=== PATIENT | male | born 1975 | race Caucasian/White ===

== ENCOUNTER 2021-06-25 16:54 | Emergency (ER) | payer OTHER ==
[~2021-06-25] VITALS: Ht 167.6 cm; Wt 113.4 kg
[2021-06-25 17:41] LABS: ABSOLUTE NEUTROPHILS 7.8 thou/uL (1.4-8.2); BASOPHILS 0.9 % (0.0-2.0); EOSINOPHILS 5.1 % (0.0-3.0); HEMATOCRIT 43.4 % (42.0-52.0); HEMOGLOBIN 14.8 gm/dL (14.0-18.0); LYMPHOCYTES 21.9 % (24.0-44.0); MCH 30.3 pg (26.0-34.0); MCHC 34.1 g/dL (28.0-37.0); MCV 88.8 fL (80.0-100.0); MONOCYTES 6.5 % (1.0-8.0); PLATELET COUNT 229 thou/uL (150-400); POLYS 65.6 % (36.0-66.0); RBC 4.89 mil/uL (4.50-6.00); RDW 13.9 % (10.5-14.5); WBC 11.9 thou/uL (4.0-11.0)
[2021-06-25 17:50] LABS: CREATININE 1.9 mg/dL (0.7-1.3)
[2021-06-25 17:56] LABS: ALBUMIN 4.1 g/dL (3.4-5.0); TOTAL BILIRUBIN 0.9 mg/dL (0.2-1.0); TOTAL PROTEIN 8.2 g/dL (6.4-8.2)
[2021-06-25 18:17] LABS: MAGNESIUM 1.4 mg/dL (1.8-2.4); TROPONIN-I <0.06 ng/mL (<0.06)
[2021-06-25 19:58] VITALS: BP 138/79
--- NOTE | 2021-06-26 07:15 | EKG ---
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
== END 2021-06-25 20:00 | disposition home or self-care (01) ==
LOC: ER 16:54
PROVIDERS: Physician Assistant
DX: N17.9 Acute kidney failure, unspecified (principal); E86.0 Dehydration; Z77.123 Contact with and (suspected) exposure to radon and other naturally occurring radiation; Z20.822 Contact with and (suspected) exposure to COVID-19

== ENCOUNTER 2021-07-04 11:39 | Emergency (ER) | payer OTHER ==
[~2021-07-04] VITALS: Ht 170.2 cm; Wt 115.7 kg
[2021-07-04 11:49] VITALS: BP 154/73
[2021-07-04] MEDS ORDERED: FLEXERIL PO (12:05)
[2021-07-04] MEDS ORDERED: IBUPROFEN 800800 M1 PO (12:05)
== END 2021-07-04 12:51 | disposition home or self-care (01) ==
LOC: ER 11:39
DX: M54.5 Low back pain (principal); Z90.49 Acquired absence of other specified parts of digestive tract; Z87.891 Personal history of nicotine dependence

== ENCOUNTER → 2021-07-11 | Emergency (ER) | payer OTHER ==
[~2021-07-11] VITALS: Ht 170.2 cm; Wt 117.5 kg
[~2021-07-11] MED LIST: FLEXERIL PO; IBUPROFEN 800800 M1 PO
[2021-07-11 18:45] VITALS: BP 132/90
== END ==
LOC: ER 18:11
DX: R51.9 Headache, unspecified (principal); Z20.822 Contact with and (suspected) exposure to COVID-19; Z53.21 Procedure and treatment not carried out due to patient leaving prior to being seen by health care provider; R05 Cough; R53.83 Other fatigue; Z90.89 Acquired absence of other organs

== ENCOUNTER 2021-08-19 00:40 | Emergency (ER) | payer OTHER ==
[2021-08-19 00:48] VITALS: BP 144/80
--- NOTE | 2021-08-19 06:14 | NUR ---
PATIENT CONTACTED AT ([phone]) TO INFORM HIM OF POSITIVE COVID RESULTS. INFORMED PATIENT NOTIFIED THAT HE SHOULD CONTACT ANYONE HE HAS BEEN AROUND FOR THE LAST 3-5 DAYS TO LET THEM KNOW OF THE EXPOSURE. PATIENT INFORMED THAT HE SHOULD QUARANTINE FOR THE NEXT 10-14 DAYS AND CANNOT RETURN TO WORK UNTIL HE IS 10 DAYS OUT FROM POSITIVE RESULTS AND SYMPTOM FREE. PATIENT STATES UNDERSTANDING. PATIENT ASKED IF HE SHOULD COME BACK TO GET A NEGATIVE RESULT. INFORMATION PROVIDED THAT HE WOULD NOT TEST NEGATIVE FOR UP TO 90 DAYS, SO A NEGATIVE TEST RESULT IS NOT NECESSARY. INFORMATION TO FOLLOW CDC RECOMMENDATIONS AND QUARANTINE DISCUSSED PRIOR.
== END 2021-08-19 01:59 | disposition home or self-care (01) ==
LOC: ER 00:40
PROVIDERS: Emergency Medicine
DX: U07.1 COVID-19 (principal); J45.909 Unspecified asthma, uncomplicated; Z90.49 Acquired absence of other specified parts of digestive tract; Z87.891 Personal history of nicotine dependence

== ENCOUNTER 2021-08-29 15:45 | Inpatient (IN) | payer OTHER ==
[~2021-08-29] VITALS: Ht 170.2 cm; Wt 111.6 kg
[2021-08-29 15:51] VITALS: BP 117/73
[2021-08-29 16:44] LABS: ABSOLUTE NEUTROPHILS 4.2 thou/uL (1.4-8.2); BASOPHILS 0.3 % (0.0-2.0); EOSINOPHILS 0.6 % (0.0-3.0); HEMOGLOBIN 13.7 gm/dL (14.0-18.0); LYMPHOCYTES 12.8 % (24.0-44.0); MCH 29.3 pg (26.0-34.0); MCHC 33.5 g/dL (28.0-37.0); MCV 87.6 fL (80.0-100.0); MONOCYTES 5.3 % (1.0-8.0); PLATELET COUNT 117 thou/uL (150-400); RBC 4.68 mil/uL (4.50-6.00); WBC 5.2 thou/uL (4.0-11.0)
[2021-08-29 16:55] LABS: CALCIUM 7.6 mg/dL (8.5-10.1); CREATININE 2.6 mg/dL (0.7-1.3); POTASSIUM 3.6 mmol/L (3.5-5.1)
[2021-08-29 17:05] LABS: ALBUMIN 3.1 g/dL (3.4-5.0); TOTAL BILIRUBIN 0.4 mg/dL (0.2-1.0)
[2021-08-30] VITALS (7 sets, daily range): BP systolic 102–137; BP diastolic 45–82
[2021-08-30 02:22] LABS: HEMATOCRIT 43.7 % (42.0-52.0); HEMOGLOBIN 14.4 gm/dL (14.0-18.0); MCH 29.6 pg (26.0-34.0); MCV 89.7 fL (80.0-100.0); RBC 4.87 mil/uL (4.50-6.00); RDW 13.7 % (10.5-14.5); WBC 5.7 thou/uL (4.0-11.0)
[2021-08-30 02:37] LABS: CALCIUM 7.5 mg/dL (8.5-10.1); CREATININE 2.3 mg/dL (0.7-1.3); POTASSIUM 4.2 mmol/L (3.5-5.1)
--- NOTE | 2021-08-30 08:08 | EKG ---
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
--- NOTE | 2021-08-30 14:35 | NUR ---
ADMISSION NOTE: PT ADMITTED TO ROOM 354. ALERT AND ORIENTED X 4. PAIN IN R SIDE OF LOWER BACK STATES ITS TOLERABLE BUT WILL LET US KNOW IF HE NEEDS PAIN MANAGEMENT. CAME FROM ED ON 3L NC BUT HAD TO INCREASE TO 10L. PT IS CURRENTLY ON OPTIFLOW DUE TO SHORT OF AIR. DR. XIONG MADE AWARE. 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 ASSESSMENT AND ADMISSION COMPLETED. CONSENTS SIGNED BY PT AND IN CHART. SKIN INTACT. USES URINAL. WILL USE BSC NEEDED. PT ORIENTED TO ROOM. CALL LIGHT AND TABLE WITHIN REACH. CALLED WHILE IN THE ROOM, UPDATED ABOUT CARE. ENHANCED PRECAUTIONS IN PLACE. ALL CONSULTS CALLED IN BY TEAM ASSEMBLY LINE MACHINE OPERATOR. PT DENIES ANY NEEDS AT THE MOMENT. WILL CONTINUE TO MONITOR.
[2021-08-30 19:26] LABS: D-DIMER 0.66 ug/mLFEU (0.19-0.50); INR 0.99; PROTIME 10.8 Seconds (10.5-12.1)
[2021-08-31 03:52] VITALS: BP 126/68
[2021-08-31 04:22] LABS: ALBUMIN 2.5 g/dL (3.4-5.0); ANION GAP 10 mmol/L (7-16); BUN 33 mg/dL (7-18); CALCIUM 7.6 mg/dL (8.5-10.1); CHLORIDE 110 mmol/L (98-107); CO2 26 mmol/L (21-32); CREATININE 2.1 mg/dL (0.7-1.3); DIRECT BILIRUBIN < 0.1 mg/dL (<0.1-0.2); GLUCOSE 161 mg/dL (74-106); PHOSPHORUS 2.9 mg/dL (2.6-4.7); POTASSIUM 4.3 mmol/L (3.5-5.1); SGOT 51 U/L (15-37); SGPT 52 U/L (16-63); SODIUM 146 mmol/L (136-145); TOTAL BILIRUBIN 0.2 mg/dL (0.2-1.0); TOTAL PROTEIN 6.6 g/dL (6.4-8.2)
[2021-08-31 04:27] LABS: ABSOLUTE NEUTROPHILS 5.5 thou/uL (1.4-8.2); BASOPHILS 0.1 % (0.0-2.0); EOSINOPHILS 0.1 % (0.0-3.0); HEMATOCRIT 41.4 % (42.0-52.0); HEMOGLOBIN 13.8 gm/dL (14.0-18.0); LYMPHOCYTES 9.4 % (24.0-44.0); MCH 29.8 pg (26.0-34.0); MCHC 33.4 g/dL (28.0-37.0); MCV 89.3 fL (80.0-100.0); MONOCYTES 7.5 % (1.0-8.0); PLATELET COUNT 145 thou/uL (150-400); POLYS 82.9 % (36.0-66.0); RBC 4.64 mil/uL (4.50-6.00); RDW 14.1 % (10.5-14.5); WBC 6.6 thou/uL (4.0-11.0)
--- NOTE | 2021-08-31 06:24 | NUR ---
02 SATURATION STAYS IN 90'S UNTIL MOVEMENT, THEN SATS DROP TO LOW TO MID 80'S. RT MOVED OPTIFLOW RATE UP TO 40L @ 60%. PT VOIDS VIA URINAL. POC WITH IVF GTT AND IVPB ANTIBIOTICS. COVID POC WITH REMDESIVIR AND ACTEMRA. ACTEMRA PREDOSING COMPLETED. VSS.
[2021-08-31 07:24] VITALS: BP 126/70
[2021-08-31 11:12] VITALS: BP 123/85
[2021-08-31 15:28] VITALS: BP 125/74
[2021-08-31 20:39] VITALS: BP 128/73
--- NOTE | 2021-08-31 23:13 | NUR ---
PT ALERT AND ORIENTED X4. VSS AFEBRILE. SATS 87-88% AFTER GETTING BACK FROM COMMODE TO BED. SATS 94-96% WHILE RESTING IN BED. DENIED PAIN. ABX INFUSING ORDERED. BED DOWN BED ALARM IS ON. INSTRUCTED TO CALL FOR ASSISTANCE PRIOR TO GETTING OOB.
[2021-09-01 03:48] VITALS: BP 129/76
[2021-09-01 04:33] LABS: BASOPHILS 0.2 % (0.0-2.0); HEMATOCRIT 40.4 % (42.0-52.0); HEMOGLOBIN 13.6 gm/dL (14.0-18.0); LYMPHOCYTES 6.4 % (24.0-44.0); MCH 29.9 pg (26.0-34.0); MCHC 33.8 g/dL (28.0-37.0); MCV 88.5 fL (80.0-100.0); MONOCYTES 6.5 % (1.0-8.0); PLATELET COUNT 194 thou/uL (150-400); POLYS 86.9 % (36.0-66.0); RBC 4.56 mil/uL (4.50-6.00); RDW 14.7 % (10.5-14.5); WBC 10.3 thou/uL (4.0-11.0)
[2021-09-01 04:51] LABS: ALBUMIN 2.8 g/dL (3.4-5.0); CALCIUM 7.8 mg/dL (8.5-10.1); CREATININE 2.1 mg/dL (0.7-1.3); DIRECT BILIRUBIN 0.1 mg/dL (<0.1-0.2); PHOSPHORUS 3.9 mg/dL (2.5-4.9); POTASSIUM 4.3 mmol/L (3.5-5.1); TOTAL BILIRUBIN 0.3 mg/dL (0.2-1.0); TOTAL PROTEIN 6.2 g/dL (6.4-8.2)
--- NOTE | 2021-09-01 06:53 | NUR ---
PT PROGRESSING TOWARDS D/C GOALS VSS. SATS WNL 94%. DESATS WITH TRANSFERRING THEN GOES BACK UP. TO 90S. PT IN GOOD SPIRITS THIS AM AND STATED HE FEELS LIKE HE IS DOING BETTER.
[2021-09-01 07:26] VITALS: BP 158/75
[2021-09-01 11:10] VITALS: BP 119/79
[2021-09-01 15:25] VITALS: BP 120/74
[2021-09-01 19:18] VITALS: BP 130/80
--- NOTE | 2021-09-01 22:36 | NUR ---
PT AWAKE TALKING ON PHONE RESTING IN BED. OPTI YOLANDA INTACT. LUNGS WHEEZES. BS HYPOACTIVE. PT INCREASE SOA WITH EXERTION AND TALKING. PT DECLINED HS SNACK.
[2021-09-02 02:05] LABS: HIV ANTIBODY Non Reactive (Non Reactive)
[2021-09-02 03:44] LABS: ABSOLUTE NEUTROPHILS 7.9 thou/uL (1.4-8.2); BASOPHILS 0.1 % (0.0-2.0); HEMATOCRIT 40.7 % (42.0-52.0); HEMOGLOBIN 13.5 gm/dL (14.0-18.0); LYMPHOCYTES 8.3 % (24.0-44.0); MCH 29.4 pg (26.0-34.0); MCHC 33.1 g/dL (28.0-37.0); MCV 88.6 fL (80.0-100.0); MONOCYTES 7.9 % (1.0-8.0); PLATELET COUNT 220 thou/uL (150-400); POLYS 83.7 % (36.0-66.0); RBC 4.59 mil/uL (4.50-6.00); RDW 13.9 % (10.5-14.5); WBC 9.4 thou/uL (4.0-11.0)
[2021-09-02 04:05] LABS: ALBUMIN 2.9 g/dL (3.4-5.0); CALCIUM 8.3 mg/dL (8.5-10.1); DIRECT BILIRUBIN 0.1 mg/dL (<0.1-0.2); POTASSIUM 4.1 mmol/L (3.5-5.1); TOTAL BILIRUBIN 0.4 mg/dL (0.2-1.0); TOTAL PROTEIN 6.2 g/dL (6.4-8.2)
[2021-09-02 04:42] VITALS: BP 138/87
[2021-09-02 07:17] VITALS: BP 115/78
[2021-09-02 11:49] VITALS: BP 125/90
[2021-09-02 15:35] VITALS: BP 139/82
--- NOTE | 2021-09-02 15:55 | NUR ---
INITIAL ASSESSMENT: Received consult. SW reviewed chart and spoke with nursing and attending physician. Pt was admitted from home due to COVID. Pt placed in Enhanced Isolation. Pt has not received a COVID vaccination. Pt is afebrile and requiring optiflow. Pt is on IV abx, IV steroids, IV lasix and Remdesivir. GUSTAVO spoke with pt via phone. Introduced role of SW. Pt is alert/orientated x 4. Pt reports he lives at home with his and family. Prior to admission, pt was independent with ADLs. No use of DME. No hx of services or post acute placmeent. Pt does not have a PCP. Pt is interested in establishing primary care at [facility]. Therapy evals to be ordered when pt is able to participate. Plan is for pt to discharge home when medically stable. GUSTAVO is following to assist as needed with discharge planning.
--- NOTE | 2021-09-02 18:19 | NUR ---
RN ASSUMED PT'S CARE AT 0700AM, PT IS A&OX4, PT IS ON HIFLOW O2 ( OPTIFLOW ) O2 50L/MIN WITH O2 60%, PT'S O2 SAT STAYS AT 90-93%, PT HAS SOB WITH ACTIVITIES, PT'S VS ARE STABLE, PT DENIES PAIN AT DAY SHIFT, PT IS CONTINUING IV ABX AND TREAT COVID MEDICATIONS, PT CAN GET UP TO BATH ROOM WITHOUT ASSIST.
[2021-09-02 19:28] VITALS: BP 11/71
--- NOTE | 2021-09-02 22:07 | NUR ---
PT SITTIN UP ON EDGE OF BED, HOLDS HEAD DOWN. PT STATED HE WAS TOLD TODAY HE MAY NEED TO BE HERE ANOTHER WEEK, REPORTED HE IS ANXIOUS AND XANAX WAS NOW ORDERED. PT PROVIDED HS SNACK. OPTI YOLANDA INTACT, LUNGS DIMINISHED IN THE BASES. PT INDEP WITH BSC. IVF INTACT.
[2021-09-03 04:48] LABS: ABSOLUTE NEUTROPHILS 7.1 thou/uL (1.4-8.2); BASOPHILS 0.2 % (0.0-2.0); EOSINOPHILS 0.1 % (0.0-3.0); HEMATOCRIT 41.1 % (42.0-52.0); HEMOGLOBIN 13.6 gm/dL (14.0-18.0); LYMPHOCYTES 11.2 % (24.0-44.0); MCH 29.7 pg (26.0-34.0); MCHC 33.2 g/dL (28.0-37.0); MCV 89.4 fL (80.0-100.0); MONOCYTES 8.5 % (1.0-8.0); PLATELET COUNT 225 thou/uL (150-400); RBC 4.59 mil/uL (4.50-6.00); RDW 14.1 % (10.5-14.5); WBC 8.9 thou/uL (4.0-11.0)
[2021-09-03 05:22] LABS: CALCIUM 8.6 mg/dL (8.5-10.1); CREATININE 1.8 mg/dL (0.7-1.3); DIRECT BILIRUBIN 0.2 mg/dL (<0.1-0.2); PHOSPHORUS 5.2 mg/dL (2.5-4.9); POTASSIUM 4.1 mmol/L (3.5-5.1); TOTAL BILIRUBIN 0.5 mg/dL (0.2-1.0); TOTAL PROTEIN 6.4 g/dL (6.4-8.2)
[2021-09-03 05:36] VITALS: BP 108/71
[2021-09-03 08:19] VITALS: BP 112/66
[2021-09-03 11:47] VITALS: BP 109/66
[2021-09-03 15:23] VITALS: BP 119/54
--- NOTE | 2021-09-03 15:47 | NUR ---
SW reviewed chart and spoke with nursing and attending physician. Pt remains in Enhanced Isolation due to COVID. Pt is afebrile and requiring optiflow. Pt is on IV abx, IV steroids and IV lasix. Pt is completing course of Remdesivir. Plan is for pt to discharge home when medically stable. SW is following to assist as needed with discharge planning.
--- NOTE | 2021-09-03 18:29 | NUR ---
PT CONTINUE TO BE ON OPTIOFLOW 70%, 50L. SOB WITH EXERTION. PT ENCOURAGE TO DEEP COUGH AND DEEP BREATH. USES URINAL AND BSC. LUNGS ARE COARSE AND CRACKLY. ON LASIX AND 1500 FLUID RESTRICTED. CONTINUE TO BE IN ENHANCED PRECAUTIONS. WILL CONTINUE TO MONITOR
[2021-09-03 19:55] VITALS: BP 110/70
[2021-09-04 03:45] VITALS: BP 116/81
--- NOTE | 2021-09-04 06:26 | NUR ---
resting quietly tonight. he is cooperative. o2 sats low 90's. continues on the same dose of oxygen tonight as he started shift. no discharge concerns voice.d
[2021-09-04 06:30] LABS: CALCIUM 8.9 mg/dL (8.5-10.1); CREATININE 1.8 mg/dL (0.7-1.3); DIRECT BILIRUBIN 0.2 mg/dL (<0.1-0.2); PHOSPHORUS 4.9 mg/dL (2.5-4.9); POTASSIUM 4.2 mmol/L (3.5-5.1); TOTAL BILIRUBIN 0.6 mg/dL (0.2-1.0)
[2021-09-04 08:23] VITALS: BP 96/67
[2021-09-04 11:52] VITALS: BP 110/64
[2021-09-04 15:37] VITALS: BP 122/71
--- NOTE | 2021-09-04 18:29 | NUR ---
pt continue to be on optiflow, fio2 70%. sob with exertion. pt encouge to prone and deep and cough. had a bm todya. called [facility]. denies any concerns em
[2021-09-04 19:22] VITALS: BP 113/74
--- NOTE | 2021-09-04 22:47 | NUR ---
PT SLEEPING ON HIS STOMACH, PT PLEASED WITH HIGH O2 SAT. OPTI YOLANDA INTACT. LUNGS CLEAR. PT DECLINED HS SNACK. INDEP WITH ADLS, CALLS FOR ASSISTANCE.
[2021-09-05 03:01] VITALS: BP 106/64
[2021-09-05 05:18] LABS: ABSOLUTE NEUTROPHILS 8.3 thou/uL (1.4-8.2); BASOPHILS 0.1 % (0.0-2.0); EOSINOPHILS 1.8 % (0.0-3.0); HEMATOCRIT 45.1 % (42.0-52.0); HEMOGLOBIN 14.9 gm/dL (14.0-18.0); LYMPHOCYTES 11.7 % (24.0-44.0); MCH 29.6 pg (26.0-34.0); MCHC 33.1 g/dL (28.0-37.0); MCV 89.4 fL (80.0-100.0); MONOCYTES 8.5 % (1.0-8.0); PLATELET COUNT 288 thou/uL (150-400); POLYS 77.9 % (36.0-66.0); RBC 5.04 mil/uL (4.50-6.00); RDW 13.8 % (10.5-14.5); WBC 10.6 thou/uL (4.0-11.0)
[2021-09-05 06:32] LABS: ALBUMIN 3.3 g/dL (3.4-5.0); CALCIUM 9.1 mg/dL (8.5-10.1); CREATININE 1.9 mg/dL (0.7-1.3); DIRECT BILIRUBIN 0.2 mg/dL (<0.1-0.2); PHOSPHORUS 5.1 mg/dL (2.5-4.9); POTASSIUM 4.5 mmol/L (3.5-5.1); TOTAL BILIRUBIN 0.7 mg/dL (0.2-1.0)
[2021-09-05 07:26] VITALS: BP 92/63
[2021-09-05 08:55] LABS: T-SPOT.TB Negative
[2021-09-05 11:17] VITALS: BP 99/76
--- NOTE | 2021-09-05 13:02 | NUR ---
GUSTAVO reviewed chart and spoke with nursing and attending physician. Pt remains in Enhanced Isolation due to COVID. Pt is afebrile and requiring optiflow. Pt is on IV abx, IV steroids and IV lasix. GUSTAVO placed call to pt's room. No answer. Plan is for pt to discharge home when medically stable. Pt will need a rest/exercise oximetry prior to discharge to determine home O2 needs. GUSTAVO is following to assist as needed with discharge planning.
[2021-09-05 15:36] VITALS: BP 113/68
[2021-09-05 20:10] VITALS: BP 111/61
--- NOTE | 2021-09-05 23:27 | NUR ---
PT ALERT X4. VSS AFEBRILE. NO C/O SOA NOTED PRESENTLY. HE IS RESTING QUIETLY WATCHING T.V.OPTIFLOW 40LF AND 40%FIO2 UNLABORED AT THIS TIME. NO C/O PAIN. BED DOWN CALL LIGHT IN REACH. NO S/S DISTRESS.
[2021-09-06 03:45] VITALS: BP 113/72
--- NOTE | 2021-09-06 04:11 | NUR ---
PT PROGRESSING TOWARDS D/C GOALS. NO C/O SOA TONIGHT . PT MAINTAINED OSATS WNL. NO S/S DISTRESS.
--- NOTE | 2021-09-06 06:51 | NUR ---
PT RESTING QUIETLY THIS AM. NO S/S DISTRESS
[2021-09-06 07:51] VITALS: BP 108/69
[2021-09-06 11:40] VITALS: BP 119/67
[2021-09-06 13:31] VITALS: BP 119/67
--- NOTE | 2021-09-06 14:54 | NUR ---
GUSTAVO reviewed chart and spoke with nursing and attending physician. Pt remains in Enhanced Isolation due to COVID. Pt is afebrile and on oxygen. Pt is on IV steroids and IV lasix. Pt is progressing towards goals for discharge. Possible weekend discharge. GUSTAVO spoke with pt via phone to discuss discharge plan and need for home O2. Pt verbalized understanding and is agreeable with plan. Options for home O2 companies provided. No preference voiced. GUSTAVO verified pt's home address and phone number. GUSTAVO faxed home O2 referral and exercise oximetry results to [facility]-pt currently requiring 2L at rest and 4L with activity. GUSTAVO notified [facility] liaison of new referral. Portable O2 tank to be delivered to the hospital. Pt to contact [facility] to coordinate the delivery of his home O2 equipment. Contact info for [facility] and for [facility] provider groups placed in pt's discharge summary. Pt's family will provide transportation home when medically stable. Script for O2 and additional rest/exercise oximetry testing will need to be faxed to [facility] when available. GUSTAVO is following and is available to assist as needed with discharge planning. [facility]--
[2021-09-06 16:25] VITALS: BP 115/74
[2021-09-06 20:55] VITALS: BP 120/88
--- NOTE | 2021-09-06 22:22 | NUR ---
PT PROGESSING TOWARDS D/C GOALS. VSS AFEBRILE. O2 NOW ON 2LNC. SATS WNL. BS DIMINISHED AND UNLABORED. PT IS LYING PRONE, DENIES PAIN. PT TRANSFERS FROM BED TO BSC AND CHAIR WITHOUT DIFFICULTY.
[2021-09-07 03:50] VITALS: BP 119/75
--- NOTE | 2021-09-07 04:07 | NUR ---
PT PROGRESSING WELL TOWARDS D/C GOALS. VSS AFEBRILE. SATS 94% ON 2LNC. NO C/O SOA. NO S/S DISTRESS.
[2021-09-07 06:25] LABS: ABSOLUTE NEUTROPHILS 7.1 thou/uL (1.4-8.2); BASOPHILS 0.3 % (0.0-2.0); EOSINOPHILS 3.1 % (0.0-3.0); HEMATOCRIT 45.4 % (42.0-52.0); HEMOGLOBIN 14.9 gm/dL (14.0-18.0); LYMPHOCYTES 12.8 % (24.0-44.0); MCH 29.2 pg (26.0-34.0); MCHC 32.8 g/dL (28.0-37.0); MCV 89.2 fL (80.0-100.0); MONOCYTES 9.5 % (1.0-8.0); PLATELET COUNT 237 thou/uL (150-400); POLYS 74.3 % (36.0-66.0); RBC 5.08 mil/uL (4.50-6.00); RDW 13.7 % (10.5-14.5); WBC 9.5 thou/uL (4.0-11.0)
[2021-09-07 06:54] LABS: ALBUMIN 3.2 g/dL (3.4-5.0); CALCIUM 8.5 mg/dL (8.5-10.1); CREATININE 1.5 mg/dL (0.7-1.3); DIRECT BILIRUBIN 0.1 mg/dL (<0.1-0.2); PHOSPHORUS 3.8 mg/dL (2.5-4.9); TOTAL BILIRUBIN 0.7 mg/dL (0.2-1.0); TOTAL PROTEIN 6.6 g/dL (6.4-8.2)
[2021-09-07 07:06] VITALS: BP 110/77
[2021-09-07] MEDS ORDERED: LASIX 40 MG TAB40 MG PO (10:19)
[2021-09-07] MEDS ORDERED: DEXAMETHASONE6 MG PO (10:20)
[2021-09-07] MEDS ORDERED: ASPIRIN EC325 M1 PO (10:20)
[2021-09-07 11:09] VITALS: BP 115/77
--- NOTE | 2021-09-07 12:29 | NUR ---
FAXED THE REST/EXERCISE OXIMETRY REPORT DATED 09/06/21 AND SCRIPT TO [facility]. VERIFIED WITH CHRISSIE SERRATO/[facility] THAT PATIENT D/C TODAY. GAVE CHRISSIE THE PT'S ADDRESS/PHONE NUMBER. ADVISED RN TO HAVE PT CALL [facility] TO SET UP O2 AT HOME. PATIENT HAS [facility]E/Maureen TANK FOR D/C. [facility]E W [phone]; FA [phone]
[2021-09-07 12:39] VITALS: BP 119/67
--- NOTE | 2021-09-07 13:21 | NUR ---
DISCHARGE INSTRUCTIONS AND NE MED INFO WENT THROUGH IT PT. PT EDUCATED ON HOW TO USE HOME O2 AND PHONE NUMBER TO CALL IF HE RUNS OUT OF OXYGEN. IV AND TELE D/C. ALL BELONGING WITH PT. PT TAKEN DOWN VIA WHEELCHAIR.
--- NOTE | 2021-09-07 20:28 | NUR ---
2014 PT CALLED AND STATED PT O2 IS DOWN TO "RED" (EMPTY). SHE STATED SHE DID CALL [facility] AND A [employer]AVER TOLD THE PATIENT THE WILL GET CONTACT THEM ON THURSDAY TO BRING AN OPXYGEN TANK. THIS RN CALLED CALLED [facility] AND SPOKE TO A [employer] WEAVER WHO SAID THEY WILL CALL [facility] TO LET THEM KNOW, AND SENT DOWN ANOTHER OXYGEN TANK TO PT. PT INSTRUCTED AND EDUCATED TO REST AND AVOID ANY ACTIVITY , IF SOB GETS WORSE, SHOULD COME TO THE ED.
== END 2021-09-07 13:29 | disposition home or self-care (01) | DRG 871 ==
LOC: ER 15:45 → 3W 18:31 → EROBS 18:31 → 3W 08-30 07:55
PROVIDERS: Emergency Medicine; Hospitalist; Specialist; ADMIT Hospitalist; ATTEND Hospitalist
PROC: 5A0935A Assistance with Respiratory Ventilation, Less than 24 Consecutive Hours, High Flow/Velocity Cannula (ICD-10-PCS; principal; 2021-08-30)
PROC: XW033E5 Introduction of Remdesivir Anti-infective into Peripheral Vein, Percutaneous Approach, New Technology Group 5 (ICD-10-PCS; principal; 2021-08-30)
PROC: 5A0945A Assistance with Respiratory Ventilation, 24-96 Consecutive Hours, High Flow/Velocity Cannula (ICD-10-PCS; 2021-08-31)
PROC: 5A0935A Assistance with Respiratory Ventilation, Less than 24 Consecutive Hours, High Flow/Velocity Cannula (ICD-10-PCS; 2021-09-03)
PROC: 5A0935A Assistance with Respiratory Ventilation, Less than 24 Consecutive Hours, High Flow/Velocity Cannula (ICD-10-PCS; 2021-09-04)
PROC: 5A0935A Assistance with Respiratory Ventilation, Less than 24 Consecutive Hours, High Flow/Velocity Cannula (ICD-10-PCS; 2021-09-05)
DX: A41.9 Sepsis, unspecified organism (principal); U07.1 COVID-19; J12.82 Pneumonia due to coronavirus disease 2019; J96.01 Acute respiratory failure with hypoxia; N17.9 Acute kidney failure, unspecified; D69.6 Thrombocytopenia, unspecified; J45.909 Unspecified asthma, uncomplicated; Z87.891 Personal history of nicotine dependence; Z90.49 Acquired absence of other specified parts of digestive tract; Z79.899 Other long term (current) drug therapy
CPT/HCPCS: 10879

== ENCOUNTER → 2021-10-02 | Outpatient (CLI) | payer OTHER ==
[~2021-10-02] MED LIST changes: +ASPIRIN EC325 M1 PO; +DEXAMETHASONE6 MG PO; +LASIX 40 MG TAB40 MG PO
== END | disposition home or self-care (01) ==
LOC: RAD 14:03
PROVIDERS: ATTEND Internal Medicine
DX: R06.00 Dyspnea, unspecified (principal); R91.8 Other nonspecific abnormal finding of lung field

== ENCOUNTER → 2021-11-05 | Outpatient (CLI) | payer OTHER | LOC: CAT 10:15 | PROVIDERS: ATTEND Internal Medicine | DX: Z01.818 Encounter for other preprocedural examination (principal); J96.11 Chronic respiratory failure with hypoxia; J84.9 Interstitial pulmonary disease, unspecified; Z86.16 Personal history of COVID-19; Z20.822 Contact with and (suspected) exposure to COVID-19 ==

== ENCOUNTER 2021-12-21 18:45 | Emergency (ER) | payer OTHER ==
[~2021-12-21] VITALS: Ht 167.6 cm; Wt 117.9 kg
[2021-12-21 19:17] VITALS: BP 164/96
[2021-12-21] MEDS ORDERED: AUGMENTIN 875-1 EACH PO (20:03)
== END 2021-12-21 20:42 | disposition home or self-care (01) ==
LOC: ER 18:45
DX: J01.10 Acute frontal sinusitis, unspecified (principal); Z20.822 Contact with and (suspected) exposure to COVID-19; J45.909 Unspecified asthma, uncomplicated; Z90.49 Acquired absence of other specified parts of digestive tract; Z86.16 Personal history of COVID-19; Z79.82 Long term (current) use of aspirin; Z79.899 Other long term (current) drug therapy; Z87.891 Personal history of nicotine dependence